=== PATIENT | female | born 1980 | race Caucasian/White ===

== ENCOUNTER → 2016-08-03 15:23 | Outpatient (CLI) | payer MEDICARE, MEDICAID ==
[2009-09-18 08:11] VITALS: BMI 25.6
[2016-08-03 18:49] LABS: INR 0.97 (0.85-1.17); PROTIME 12.7 SECONDS (11.6-15.0)
== END | disposition home or self-care (01) ==
LOC: D.LABREF 15:23
PROVIDERS: Orthopaedic Surgery
DX: S72.91XA Unspecified fracture of right femur, initial encounter for closed fracture (principal); X58.XXXA Exposure to other specified factors, initial encounter; Y93.89 Activity, other specified; Y92.89 Other specified places as the place of occurrence of the external cause; Z51.81 Encounter for therapeutic drug level monitoring; Z79.01 Long term (current) use of anticoagulants; Z89.511 Acquired absence of right leg below knee

== ENCOUNTER → 2016-08-11 11:55 | Outpatient (CLI) | payer MEDICARE, MEDICAID ==
[2009-09-18 08:11] VITALS: BMI 25.6
[2016-08-11 12:25] LABS: APTT 31.5 SECONDS (22.8-39.4); INR 1.13 (0.85-1.17); PROTIME 14.4 SECONDS (11.6-15.0)
== END | disposition home or self-care (01) ==
LOC: D.LABREF 11:55
PROVIDERS: Orthopaedic Surgery
DX: Z51.81 Encounter for therapeutic drug level monitoring (principal); Z79.01 Long term (current) use of anticoagulants

== ENCOUNTER → 2016-08-17 12:37 | Outpatient (CLI) | payer MEDICARE, MEDICAID ==
[2009-09-18 08:11] VITALS: BMI 25.6
[2016-08-17 13:43] LABS: INR 1.51 (0.85-1.17); PROTIME 18.1 SECONDS (11.6-15.0)
== END | disposition home or self-care (01) ==
LOC: D.LABREF 12:37
PROVIDERS: Orthopaedic Surgery
DX: S72.001A Fracture of unspecified part of neck of right femur, initial encounter for closed fracture (principal); X58.XXXA Exposure to other specified factors, initial encounter; Y93.89 Activity, other specified; Y92.89 Other specified places as the place of occurrence of the external cause

== ENCOUNTER → 2017-03-02 14:42 | Outpatient (CLI) | payer MEDICARE, MEDICAID ==
[2009-09-18 08:11] VITALS: BMI 25.6
[2017-03-02 17:23] LABS: INR 2.03 (0.85-1.17)
== END | disposition home or self-care (01) ==
LOC: D.LABREF 14:42
PROVIDERS: Orthopaedic Surgery
DX: Z96.649 Presence of unspecified artificial hip joint (principal)

== ENCOUNTER → 2017-03-09 14:29 | Outpatient (CLI) | payer MEDICARE, MEDICAID ==
[2009-09-18 08:11] VITALS: BMI 25.6
[2017-03-09 17:21] LABS: INR 1.89 (0.85-1.17); PROTIME 21.7 SECONDS (11.6-15.0)
== END | disposition home or self-care (01) ==
LOC: D.LABREF 14:29
PROVIDERS: Orthopaedic Surgery
DX: Z51.81 Encounter for therapeutic drug level monitoring (principal); Z79.01 Long term (current) use of anticoagulants